=== PATIENT | female | born 1995 | race Caucasian/White ===

== ENCOUNTER 2020-12-03 10:52 | Emergency (ER) | payer BC, OTHER ==
[2020-12-03 13:49] LABS: Absolute Lymphocytes (CBC) 2.2 K/uL (0.7-4.9); Basophils % 0.4 % (0-1.3); Hematocrit 40.2 % (36.0-45.0); Lymphocytes % 22.5 % (15.3-44.8); MPV 7.6 fL (7.6-11.3); RBC Red Blood Cell Count 4.97 M/uL (3.86-4.86)
[2020-12-03 14:00] LABS: Urine Blood 1+ (Negative); Urine Glucose NEGATIVE (Negative); Urine Protein NEGATIVE (Negative)
[2020-12-03 14:08] LABS: ALT/SGPT 28 U/L (12-78); AST/SGOT 17 U/L (15-37); Albumin 3.3 g/dL (3.4-5.0); Alkaline Phosphatase 82 U/L (45-117); BUN Blood Urea Nitrogen 8 mg/dL (7-18); Bicarbonate 26 mmol/L (21-32); Bilirubin Direct < 0.1 mg/dL (0-0.2); Bilirubin Total 0.2 mg/dL (0.2-1.0); Glucose Level 83 mg/dL (74-106); Lipase 132 U/L (73-393); Potassium 4.2 mmol/L (3.5-5.1); Protein, Total 7.6 g/dL (6.4-8.2); Sodium Level 140 mmol/L (136-145)
[2020-12-03 14:55] LABS: Urine Bacteria <20 /HPF (<20); Urine Mucus 1+ /HPF (NONE SEEN)
--- NOTE | 2020-12-03 15:28 | ER ---
Nurse's Notes [facility] Name: Brandon Potts Age: 25 yrs Sex: Female : 1995 Arrival Date: 12/03/2020 Time: 11:00 Bed 13 Private MD: Diagnosis: Unspecified abdominal pain Presentation: 12/03 11:02 Chief complaint: Patient states: Mid abd pain and low back pain all weekend. Noticed ll1 drainage from her belly button with foul odor since last night. No fever. No N/V/D. Coronavirus screen: Client denies travel out of the [place] in the last 14 days. At this time, the client does not indicate any symptoms associated with coronavirus-19. Ebola Screen: Patient denies travel to an Ebola-affected area in the 21 days before illness onset. Initial Sepsis Screen: Does the patient meet any 2 criteria? HR > 90 bpm. No. Patient's initial sepsis screen is negative. Does the patient have a suspected source of infection? Yes: Acute abdominal pain. Risk Assessment: Do you want to hurt yourself or someone else? Patient reports no desire to harm self or others. Onset of symptoms was November 29, 2020. 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 Flu vaccine is not up to date. - Social history:: Smoking status: Patient denies any tobacco usage or history of. Screenin:11 Abuse screen: Denies threats or abuse. Nutritional screening: No deficits noted. vg1 Tuberculosis screening: No symptoms or risk factors identified. Fall Risk No fall in past 12 months (0 pts). No secondary diagnosis (0 pts). No IV (0 pts). Ambulatory Aid- None/Bed Rest/Nurse Assist (0 pts). Gait- Normal/Bed Rest/Wheelchair (0 pts) Mental Status- Oriented to own ability (0 pts). Total Gaines Fall Scale indicates No Risk (0-24 pts). Assessment: 13:08 General: Appears in no apparent distress. comfortable, Behavior is calm, cooperative. vg1 Pain: Complains of pain in umbilical area Pain currently is 3 out of 10 on a pain scale. Pain began 1 day ago. Neuro: Level of Consciousness is awake, alert, obeys commands, Oriented to person, place, time, situation. Cardiovascular: Patient's skin is warm and dry. Respiratory: Airway is patent Respiratory effort is even, unlabored. GI: No signs and/or symptoms were reported involving the gastrointestinal system. : No signs and/or symptoms were reported regarding the genitourinary system. EENT: No signs and/or symptoms were reported regarding the EENT system. Derm: white substance near and around umbilicus. Pt stated 'there's an odor'. Pt stated 'I removed a hard substance from my bellybutton last night about the size of a q-tip. It was white and brow.'. Musculoskeletal: Circulation, motion, and sensation intact. 14:56 Reassessment: Patient appears in no apparent distress at this time. No changes from vg1 previously documented assessment. Patient and/or family updated on plan of care and expected duration. Pain level reassessed. Patient is alert, oriented x 3, equal unlabored respirations, skin warm/dry/pink. Patient denies pain at this time. Vital Signs: 11:02 BP 145 / 86; Pulse 98; Resp 17; Temp 98.6; Pulse Ox 98% ; Weight 81.65 kg; Height 5 ft. ll1 2 in. (157.48 cm); Pain 2/10; 13:10 BP 117 / 86; Pulse 90; Resp 16; Pulse Ox 100% on R/A; vg1 14:53 BP 119 / 67; Pulse 90; Resp 14; Pulse Ox 100% on R/A; vg1 15:41 BP 128 / 75; Pulse 88; Resp 14; Pulse Ox 100% on R/A; vg1 11:02 Body Mass Index 32.92 (81.65 kg, 157.48 cm) ll1 ED Course: 11:00 Patient arrived in ED. ds1 11:04 Triage completed. ll1 11:06 Arm band placed on. ll1 12:59 Fadia Flores, RN is Primary Nurse. vg1 13:06 Vasu Ochoa NP is PHCP. pm1 13:06 Brenton Hernandez MD is Attending Physician. pm1 13:11 Patient has correct armband on for positive identification. Bed in low position. Call vg1 light in reach. Side rails up X 1. 13:38 Initial lab(s) drawn, by me, sent to lab. Inserted saline lock: 20 gauge in left vg1 antecubital area, using aseptic technique. Blood collected. 13:52 Urine collected: clean catch specimen, cloudy. vg1 15:41 No provider procedures requiring assistance completed. IV discontinued, intact, vg1 bleeding controlled, No redness/swelling at site. Pressure dressing applied. Administered Medications: No medications were administered Outcome: 15:28 Discharge ordered by . pm1 15:41 Discharged to home ambulatory. vg1 15:41 Condition: stable 15:41 Discharge instructions given to patient, Instructed on discharge instructions, follow up and referral plans. Demonstrated understanding of instructions, follow-up care. 15:41 Patient left the ED. vg1 Signatures: Karis Miranda ds1 Vasu Ochoa NP IMPLEMENTATION ARCHITECT pm1 Fadia Flores RN RN vg1 Dulce Estrada RN RN 1
--- NOTE | 2020-12-03 15:28 | EDPHYS ---
Physician Documentation [facility] Name: Brandon Potts Age: 25 yrs Sex: Female : 1995 Arrival Date: 12/03/2020 Time: 11:00 Bed 13 Private MD: ED Physician Brenton Hernandez HPI: 12/03 13:29 This 25 yrs old Female presents to ER via Ambulatory with complaints of Belly pm1 Button Issue. 13:29 The patient presents with Patient was cleaning her umbilicus and found a kernel size pm1 dirt. Patient was afraid that her intestines were coming out. Reports pain in the area that resolved after a bowel movement. Patient is no longer having abdominal pain. Patient with low back pain that has also resolved. Patient is not experiencing any pain at the moment. No nausea, vomiting, diarrhea. No fever. No dysuria present. Onset: The symptoms/episode began/occurred 2 day(s) ago. The symptoms do not radiate. Associated signs and symptoms: Pertinent positives: constipation, Pertinent negatives: nausea, vomiting, and diarrhea, chest pain, dysuria, fever, shortness of breath. Modifying factors: The symptoms are alleviated by bowel movement. the symptoms are aggravated by nothing. Severity of pain: in the emergency department the pain has resolved is a 0 / 10. The patient has not experienced similar symptoms in the past. The patient has not recently seen a physician. 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 Flu vaccine is not up to date. - Social history:: Smoking status: Patient denies any tobacco usage or history of. ROS: 13:29 Constitutional: Negative for fever, chills, and weight loss, Cardiovascular: Negative pm1 for chest pain, palpitations, and edema, Respiratory: Negative for shortness of breath, cough, wheezing, and pleuritic chest pain. 13:29 Back: Negative for injury and pain, : Negative for injury, bleeding, discharge, and swelling, MS/Extremity: Negative for injury and deformity, Skin: Negative for injury, rash, and discoloration, Neuro: Negative for headache, weakness, numbness, tingling, and seizure. 13:29 Abdomen/GI: Positive for abdominal pain, constipation, Negative for nausea, vomiting, and diarrhea. Exam: 13:29 Constitutional: This is a well developed, well nourished patient who is awake, alert, pm1 and in no acute distress. Head/Face: Normocephalic, atraumatic. 13:29 Back: No spinal tenderness. No costovertebral tenderness. Full range of motion. Skin: Warm, dry with normal turgor. Normal color with no rashes, no lesions, and no evidence of cellulitis. MS/ Extremity: Pulses equal, no cyanosis. Neurovascular intact. Full, normal range of motion. 13:29 Cardiovascular: Exam negative for acute changes, Rate: normal, Rhythm: regular, Pulses: no pulse deficits are appreciated. 13:29 Respiratory: Exam negative for acute changes, respiratory distress, shortness of breath, Breath sounds: are clear throughout. 13:29 Abdomen/GI: Inspection: abdomen appears normal, Palpation: abdomen is soft and non-tender, in all quadrants. 13:29 Neuro: Exam negative for acute changes, Orientation: is normal, Motor: is normal, moves all fours. Vital Signs: 11:02 BP 145 / 86; Pulse 98; Resp 17; Temp 98.6; Pulse Ox 98% ; Weight 81.65 kg; Height 5 ft. ll1 2 in. (157.48 cm); Pain 2/10; 13:10 BP 117 / 86; Pulse 90; Resp 16; Pulse Ox 100% on R/A; vg1 14:53 BP 119 / 67; Pulse 90; Resp 14; Pulse Ox 100% on R/A; vg1 15:41 BP 128 / 75; Pulse 88; Resp 14; Pulse Ox 100% on R/A; vg1 11:02 Body Mass Index 32.92 (81.65 kg, 157.48 cm) ll1 MDM: 13:07 Patient medically screened. pm1 15:27 Data reviewed: vital signs. Data interpreted: Pulse oximetry: on room air is 100 %. pm1 Interpretation: normal. Counseling: I had a detailed discussion with the patient and/or guardian regarding: the historical points, exam findings, and any diagnostic results supporting the discharge/admit diagnosis, lab results, the need for outpatient follow up, to return to the emergency department if symptoms worsen or persist or if there are any questions or concerns that arise at home. 12/03 13:23 Order name: Basic Metabolic Panel; Complete Time: 14:11 pm1 12/03 13:23 Order name: CBC with Diff; Complete Time: 14:06 pm1 12/03 13:23 Order name: Hepatic Function; Complete Time: 14:11 pm1 12/03 13:23 Order name: Lipase; Complete Time: 14:11 pm12/03 13:53 Order name: Urine Dipstick--Ancillary (enter results); Complete Time: 14:06 bd 12/03 13:53 Order name: Urine --Ancillary (enter results); Complete Time: 14:06 bd 12/03 13:23 Order name: IV Saline Lock; Complete Time: 13:37 pm1 12/03 13:23 Order name: Labs collected and sent; Complete Time: 13:38 pm12/03 13:23 Order name: Urine Dipstick-Ancillary (obtain specimen); Complete Time: 13:52 pm1 12/03 13:23 Order name: Urine Test (obtain specimen); Complete Time: 13:52 pm1 12/03 14:11 Order name: Urine Microscopic Only; Complete Time: 14:56 pm1 12/03 14:57 Order name: Urine Culture EDMS Administered Medications: No medications were administered Disposition: 17:46 Co-signature as Attending Physician, Brenton Hernandez MD I agree with the assessment and tw4 plan of care. Disposition: 12/03/20 15:28 Discharged to Home. Impression: Unspecified abdominal pain. - Condition is Stable. - Discharge Instructions: Abdominal Pain, Adult. - Medication Reconciliation Form, Thank You Letter, Antibiotic Education, Prescription Opioid Use form. - Follow up: Emergency Department; When: As needed; Reason: Worsening of condition. Follow up: Private Physician; When: 2 - 3 days; Reason: Recheck today's complaints, Continuance of care, Re-evaluation by your physician. - Problem is new. - Symptoms have improved. Signatures: Dispatcher [employer] EDMS Vasu Ochoa NP SAWMILL HAND pm1 Brenton Hernandez MD MD tw4 Fadia Flores, RN RN vg1 Dulce Estrada, RN RN ll1 Corrections: (The following items were deleted from the chart) 15:41 15:28 12/03/2020 15:28 Discharged to Home. Impression: Unspecified abdominal pain. vg1 Condition is Stable. Forms are Medication Reconciliation Form, Thank You Letter, Antibiotic Education, Prescription Opioid Use. Follow up: Emergency Department; When: As needed; Reason: Worsening of condition. Follow up: Private Physician; When: 2 - 3 days; Reason: Recheck today's complaints, Continuance of care, Re-evaluation by your physician. Problem is new. Symptoms have improved. pm1
[2020-12-03 16:28] VITALS: BP 128/75; TEMP 98.6; O2SAT 100
== END 2020-12-03 15:41 | disposition home or self-care (01) ==
LOC: ER 10:52
DX: R10.9 Unspecified abdominal pain (principal); K59.00 Constipation, unspecified; Z88.2 Allergy status to sulfonamides; Z91.018 Allergy to other foods; Z91.040 Latex allergy status; Z91.048 Other nonmedicinal substance allergy status
CPT/HCPCS: 36415; 80048; 80076; 81003; 81015; 81025; 83690; 85025; 87086; 87088; 99283